=== PATIENT | female | born 1995 | race African-American/Black ===

== ENCOUNTER 2018-07-07 15:56 | Emergency (ER) | payer OTHER ==
[2018-07-07 16:18] VITALS: BP 111/64; PULSE 78; TEMP 98.4; BMI 25.0
[2018-07-07] MEDS ORDERED: CYCLOBENZAPRINE HCL 10 MG TABLET (FP) PO ONE (17:18)
[2018-07-07] MEDS ORDERED: KETOROLAC TROMETHAMINE 60 MG/2 ML VIAL IM ONE (17:18)
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
[2018-07-07] MEDS ORDERED: KETOROLAC TROMETHAMINE 60 MG/2 ML VIAL ONE (17:26)
[2018-07-07] MEDS ORDERED: CYCLOBENZAPRINE HCL 10 MG TABLET (FP) ONE (17:26)
--- NOTE | 2018-07-10 13:56 | EKG ---
Test Reason : Blood Pressure : / mmHG Vent. Rate : 062 BPM Atrial Rate : 062 BPM P-R Int : 136 ms QRS Dur : 070 ms QT Int : 418 ms P-R-T Axes : 072 031 039 degrees QTc Int : 424 ms POOR DATA QUALITY, INTERPRETATION MAY BE ADVERSELY AFFECTED NORMAL SINUS RHYTHM WITH SINUS ARRHYTHMIA NONSPECIFIC ST ABNORMALITY ABNORMAL ECG NO PREVIOUS ECGS AVAILABLE Confirmed by MD Angelo, Lance ([id number]) on 07/10/2018 1:55:33 PM Referred By: Confirmed By:Lance Stephens MD
== END 2018-07-07 18:15 | disposition home or self-care (01) ==
LOC: JERFT 15:56
DX: S13.4XXA Sprain of ligaments of cervical spine, initial encounter (principal); R07.9 Chest pain, unspecified; V49.9XXA Car occupant (driver) (passenger) injured in unspecified traffic accident, initial encounter; Y92.488 Other paved roadways as the place of occurrence of the external cause; Y93.89 Activity, other specified; Y99.8 Other external cause status
CPT/HCPCS: 71046-TC-FY; 93005; 93010; 99281-25

== ENCOUNTER 2020-06-18 04:33 | Emergency (ER) | payer OTHER ==
[2020-06-18 05:02] VITALS: BMI 31.3
[2020-06-18] MEDS ORDERED: ONDANSETRON 4 MG/2 ML VIAL IVPUSH ONE (05:19)
[2020-06-18] MEDS ORDERED: SODIUM CHLORIDE 0.9% 500 ML INFUS.BAG IV ONE ×2 (05:19→06:47)
[2020-06-18] MEDS ORDERED: ACETAMINOPHEN 1000 MG/100 ML VIAL (NON FORMULARY) IVPB ONE (05:19)
[2020-06-18] MEDS ORDERED: ONDANSETRON 4 MG/2 ML VIAL ONE (05:26)
[2020-06-18] MEDS ORDERED: ACETAMINOPHEN INJECTION 100 ML IVPB ONE (05:26)
[2020-06-18 05:27] LABS: BASO % 0.3 % (0-2.0); EOS % 1.6 % (0-4.5); HEMATOCRIT 36.2 % (32.4-45.2); HEMOGLOBIN 12.1 GM/dL (10.7-15.3); LYMPH % 18.1 % (8-40); MCH 28.6 pg (25.7-33.7); MCHC 33.4 g/dl (32.0-36.0); MEAN CELL VOLUME 85.8 fl (80-96); MEAN PLT VOLUME 7.8 fl (7.5-11.1); MONO % 7.1 % (3.8-10.2); NEUT % 72.9 % (42.8-82.8); PLATELET COUNT 460 K/MM3 (134-434); RBC 4.22 M/mm3 (3.60-5.2); RDW 13.4 % (11.6-15.6); WHITE BLOOD COUNT 9.5 K/mm3 (4.0-10.0)
[2020-06-18 05:45] LABS: POTASSIUM 5.3 mmol/L (3.5-5.1)
[2020-06-18 05:47] LABS: CALCIUM 9.6 mg/dL (8.5-10.1)
[2020-06-18 05:48] LABS: ALBUMIN 4.2 g/dl (3.4-5.0); BLOOD UREA NITROGEN 10.5 mg/dL (7-18)
[2020-06-18 05:51] LABS: CREATININE 0.8 mg/dL (0.55-1.3)
[2020-06-18 05:52] LABS: BILIRUBIN,TOTAL 0.2 mg/dL (0.2-1)
[2020-06-18 06:04] LABS: INR 1.01 (0.83-1.09); PROTHROMBIN TIME (PATIENT) 12.4 SEC (9.7-13.0)
[2020-06-18 06:07] LABS: ACTIVATED PTT 28.2 SECONDS (25.2-36.5)
[2020-06-18] MEDS ORDERED: SODIUM CHLORIDE 1,000 ML IV STA (06:40)
[2020-06-18 10:59] VITALS: TEMP 97.9
[2020-06-18] MEDS ORDERED: MISOPROSTOL 200 MCG TABLET PO ONE (11:16)
[2020-06-18 12:35] VITALS: BP 126/89; PULSE 89
== END 2020-06-18 12:52 | disposition home or self-care (01) ==
LOC: JER 04:33
PROC: 3E0333Z Introduction of Anti-inflammatory into Peripheral Vein, Percutaneous Approach (ICD-10-PCS; principal; 2020-06-18)
PROC: 3E033GC Introduction of Other Therapeutic Substance into Peripheral Vein, Percutaneous Approach (ICD-10-PCS; 2020-06-18)
PROC: 3E0337Z Introduction of Electrolytic and Water Balance Substance into Peripheral Vein, Percutaneous Approach (ICD-10-PCS; 2020-06-18)
DX: N93.8 Other specified abnormal uterine and vaginal bleeding (principal); O03.4 Incomplete spontaneous abortion without complication
CPT/HCPCS: 36415; 76830-TC; 80053; 84702; 85025; 85610; 85730; 86850; 86900; 86901; 93005; 93010; 99285-25; J0131